=== PATIENT | male | born 1975 | race Caucasian/White ===

== ENCOUNTER 2017-08-20 21:36 | Emergency (ER) | payer OTHER ==
[~2017-08-20] VITALS: Ht 170.2 cm; Wt 60.3 kg
[~2017-08-20 21:36] MED LIST: CITA20TA9 PO; CLON-460 PO; ELVI1TAB6 PO; ESTR2TAB PO; GABA800T PO; MIRT45TA PO; ONDA8TAB62 SL; POTA20TA16 PO; PROM25TA9 PO; SPIR100T PO; SPRIN/30 INH; SRVDIN60 INH
[2017-08-20 21:39] VITALS: TEMP 36.7; Ht 170.2 cm; Wt 60.3 kg
--- NOTE | 2017-08-20 22:34 | DIAGNOSTIC IMAGING REPORT ---
R HAND MIN 3 VIEWS ROUTINE CLINICAL HISTORY: 41 years-old Male presenting with right hand injury, swelling. TECHNIQUE: Frontal, oblique, and lateral views of the right hand were obtained. COMPARISON: None. FINDINGS: Florien dorsal angulated acute fracture of the distal metaphysis of the fifth metacarpal. This may be mildly comminuted and impacted. This does not extend into the fifth metacarpophalangeal joint. No additional osseous abnormality. Mild overlying soft tissue swelling. IMPRESSION: Acute mildly angulated and impacted fracture of the distal metaphysis of the fifth metacarpal (boxer's fracture). Electronically signed by: Mina Pinzon M.D. 08/20/2017 10:32 PM Dictated Date/Time: 08/20/2017 10:30 PM
[2017-08-20] MEDS ORDERED: HYDR-5688 PO (22:43)
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
[2017-08-20] MEDS ORDERED: NORCO 5/325MG HOME PACK PO ONE (22:45)
[2017-08-20 22:55] VITALS: BP 109/64; PULSE 75; O2SAT 97
== END 2017-08-20 22:56 | disposition home or self-care (01) ==
LOC: C.EDB 21:37 → C.EDD 22:56
DX: S62.306A Unspecified fracture of fifth metacarpal bone, right hand, initial encounter for closed fracture (principal); Y04.0XXA Assault by unarmed brawl or fight, initial encounter; F17.200 Nicotine dependence, unspecified, uncomplicated

== ENCOUNTER 2018-01-17 11:38 | Emergency (ER) | payer OTHER ==
[~2018-01-17] VITALS: Ht 170.2 cm; Wt 63.0 kg
[~2018-01-17 11:38] MED LIST changes: +HYDR-5688 PO; +POTA-639 PO; -POTA20TA16 PO; -PROM25TA9 PO
[2018-01-17 11:41] VITALS: TEMP 36.9; Ht 170.2 cm; Wt 63.0 kg
[2018-01-17] MEDS ORDERED: RALT400T PO (12:22)
--- NOTE | 2018-01-17 12:55 | EMERGENCY ROOM VISIT NOTE ---
History Report prepared by Scooter: Larry Sosa Under the Supervision of: Dr. Jesika Blair D.O. First contact with patient: 12:43 Chief Complaint: SWELLING TO EXTREMITY Stated Complaint: LEG SWELLING History of Present Illness The patient is a 42 year old male who presents to the Emergency Room with complaints of worsening swelling to the bilateral lower extremities that began 3 days ago. The patient states that he is on his feet constantly when he works his shifts at [employer]. He has noticed lower extremity swelling intermittently in the past, but it has never been this severe. The swelling extends up to his knees and his knees are sore. The patient denies any history of blood clots and he does not wear compression stockings. He denies any chest pain or shortness of breath. The patient is HIV positive. Source of History: patient Onset: 3 days ago Position: leg (bilateral) Quality: other (swelling) Timing: worsening Associated Symptoms: + chest pain, + SOB Review of Systems See HPI for pertinent positives & negatives. A total of 10 systems reviewed and were otherwise negative. Past Medical & Surgical Medical Problems: (1) Anal fissure (2) Drug Abuse Nec-Unspec (3) Lumbago (4) Tobacco Use Disorder Surgical Problems: (1) History of colonoscopy Family History FHx: cancer Social History Smoking Status: Current Every Day Smoker Alcohol Use: occasionally Drug Use: none Marital Status: single Occupation Status: unemployed Current/Historical Medications Scheduled Clonidine HCl (Clonidine HCl), 0.3 MG PO BID Zmivhechtknc-Xbhepzvyws-Yezhha (Genvoya [phone] mg), 1 TAB PO DAILY Estradiol (Estradiol), 2 MG PO BID Gabapentin (Neurontin), 800 MG PO TID Mirtazapine (Remeron), 45 MG PO DAILY Raltegravir Potassium (Isentress), 1 TAB PO BID Salmeterol Xinafoate (Serevent Diskus), 1 PUFF INH BID Spironolactone (Aldactone), 100 MG PO BID Tiotropium [place] (Spiriva Handihaler), 1 CAP INH DAILY Scheduled PRN Ondansetron Odt (Zofran Odt), 8 MG SL Q8 PRN for Nausea Allergies Coded Allergies: No Known Allergies (Unverified , 01/17/18) Physical Exam Vital Signs Date Time Temp Pulse Resp B/P (MAP) Pulse Ox O2 Delivery O2 Flow Rate FiO2 01/17/18 15:24 70 16 160/87 100 01/17/18 14:15 68 18 114/63 Room Air 01/17/18 11:41 36.9 63 20 123/47 98 Room Air Physical Exam GENERAL: alert, well appearing, well nourished, no distress, non-toxic EYE EXAM: normal conjunctiva, PERRL and EOM's grossly intact OROPHARYNX: no exudate, no erythema, lips, buccal mucosa, and tongue normal and mucous membranes are moist NECK: supple, no nuchal rigidity, no adenopathy, non-tender LUNGS: Clear to auscultation. Normal chest wall mechanics HEART: no murmurs, S1 normal and S2 normal ABDOMEN: abdomen soft, non-tender, normo-active bowel sounds, no masses, no rebound or guarding. BACK: Back is symmetrical on inspection and there is no deformity, no midline tenderness, no CVA tenderness. SKIN: no rashes and no bruising UPPER EXTREMITIES: upper extremities are grossly normal. LOWER EXTREMITIES: 2+ pitting edema up to the knees bilaterally. NEURO EXAM: Normal sensorium, cranial nerves II-XII grossly intact, normal speech, no gross weakness of arms, no gross weakness of legs. Medical Decision & Procedures Laboratory Results 01/17/18 13:20 Red Blood Count 4.25, Mean Corpuscular Volume 98.8, Mean Corpuscular Hemoglobin 33.9, Mean Corpuscular Hemoglobin Concent 34.3, Mean Platelet Volume 9.8, Neutrophils (%) (Auto) 56.4, Lymphocytes (%) (Auto) 36.0, Monocytes (%) (Auto) 5.2, Eosinophils (%) (Auto) 1.8, Basophils (%) (Auto) 0.5, Neutrophils # (Auto) 4.45, Lymphocytes # (Auto) 2.84, Monocytes # (Auto) 0.41, Eosinophils # (Auto) 0.14, Basophils # (Auto) 0.04 01/17/18 13:20 Test 01/17/18 13:20 White Blood Count 7.89 K/uL (4.8-10.8) Red Blood Count 4.25 M/uL (4.7-6.1) Hemoglobin 14.4 g/dL (14.0-18.0) Hematocrit 42.0 % (42-52) Mean Corpuscular Volume 98.8 fL (80-100) Mean Corpuscular Hemoglobin 33.9 pg (25-34) Mean Corpuscular Hemoglobin Concent 34.3 g/dl (32-36) Platelet Count 220 K/uL (130-400) Mean Platelet Volume 9.8 fL (7.4-10.4) Neutrophils (%) (Auto) 56.4 % Lymphocytes (%) (Auto) 36.0 % Monocytes (%) (Auto) 5.2 % Eosinophils (%) (Auto) 1.8 % Basophils (%) (Auto) 0.5 % Neutrophils # (Auto) 4.45 K/uL (1.4-6.5) Lymphocytes # (Auto) 2.84 K/uL (1.2-3.4) Monocytes # (Auto) 0.41 K/uL (0.11-0.59) Eosinophils # (Auto) 0.14 K/uL (0-0.5) Basophils # (Auto) 0.04 K/uL (0-0.2) RDW Standard Deviation 52.0 fL (36.4-46.3) RDW Coefficient of Variation 14.5 % (11.5-14.5) Immature Granulocyte % (Auto) 0.1 % Immature Granulocyte # (Auto) 0.01 K/uL (0.00-0.02) Anion Gap 7.0 mmol/L (3-11) Est Creatinine Clear Calc Drug Dose 97.4 ml/min Estimated GFR () 122.8 Estimated GFR (Non- 106.0 BUN/Creatinine Ratio 10.3 (10-20) Calcium Level 8.9 mg/dl (8.5-10.1) Magnesium Level 2.0 mg/dl (1.8-2.4) Total Bilirubin 0.2 mg/dl (0.2-1) Aspartate Amino Transf (AST/SGOT) 10 U/L (15-37) Alanine Aminotransferase (ALT/SGPT) 14 U/L (12-78) Alkaline Phosphatase 86 U/L (45-117) Troponin I < 0.015 ng/ml (0-0.045) Pro-B-Type Natriuretic Peptide 83 pg/ml (0-450) Total Protein 6.9 gm/dl (6.4-8.2) Albumin 3.7 gm/dl (3.4-5.0) Globulin 3.2 gm/dl (2.5-4.0) Albumin/Globulin Ratio 1.1 (0.9-2) Laboratory results per my review. Medications Administered Medications (Trade) Dose Ordered Sig/María Route Start Time Stop Time Status Last Admin Dose Admin Acetaminophen (Tylenol Tab) 1,000 mg NOW STAT PO 01/17/18 14:04 01/17/18 14:05 DC 01/17/18 14:12 1,000 MG ED Course 1247: The patient was evaluated in room C11. A complete history and physical exam was performed. 1404: Ordered Tylenol 1000 mg PO. 1500: Patient updated on all results. Discussed elevation of legs when at rest , compression stockings when he is on his feet, close follow-up with his family doctor, symptoms to watch and return for, he verbalized understanding was agreeable with plan. Patient states he does follow-up with an HIV specialist in [address], is compliant with his medications now that he found a regimen that does not make him ill or give him adverse side effects, and states that his last CD4 count was "good". Patient is not on prophylactic antibiotics. Medical Decision Prior records reviewed and summarized above. Triage Nursing notes reviewed. Differential diagnosis: Etiologies such as DVT, musculoskeletal, infection, joint effusion, trauma, lymphedema, idiopathic, CHF, as well as others were entertained.. Patient well-appearing here despite complaints. No evidence of CHF, DVT, infection. I do not suspect other obstructive process leading to lower extremity edema. Likely this is lymphedema secondary to patient being on his feet at his job. Discussed with him this could also be a side effect of medications. Patient well-appearing here throughout, hemodynamically stable. Discussed with him elevation of the legs, use compression stockings, follow-up with his family doctor. Discussed symptoms to watch and return for, he verbalized understanding was agreeable with plan. I do not suspect occult infectious etiology, occult trauma, septic arthritis. Medication Reconcilliation Current Medication List: was personally reviewed by me Blood Pressure Screening Patient's blood pressure: Normal blood pressure Impression Primary Impression: Lower extremity edema Scribe Attestation The scribe's documentation has been prepared under my direction and personally reviewed by me in its entirety. I confirm that the note above accurately reflects all work, treatment, procedures, and medical decision making performed by me. Departure Information Dispostion Home / Self-Care Referrals Kvng Cooney M.D. (PCP) Patient Instructions My [facility] Additional Instructions Please call follow-up with your family doctor. Please consider using compression stockings when you know you need to be on your feet for a significant portion of the day. Please elevate your legs when at rest. If you have worsening swelling, overlying rash or redness, increasing joint pain, fevers or chills, chest pain or trouble breathing, palpitations, you have any other new concerns, please return the emergency room.
[2018-01-17 13:42] LABS: BASO % 0.5 %; BASO ABS # 0.04 K/uL (0-0.2); EOS % 1.8 %; EOS ABS # 0.14 K/uL (0-0.5); HEMOGLOBIN 14.4 g/dL (14.0-18.0); IG# 0.01 K/uL (0.00-0.02); LYMPH ABS # 2.84 K/uL (1.2-3.4); MEAN CELL VOLUME 98.8 fL (80-100); MEAN CORPUSCULAR HEMOGLOBIN 33.9 pg (25-34); MEAN CORPUSCULAR HGB CONC 34.3 g/dl (32-36); MEAN PLATELET VOLUME 9.8 fL (7.4-10.4); MONO % 5.2 %; MONO ABS # 0.41 K/uL (0.11-0.59); NEUT % 56.4 %; NEUT ABS # 4.45 K/uL (1.4-6.5); PLATELET COUNT 220 K/uL (130-400); RED CELL DISTRIBUTION WIDTH CV 14.5 % (11.5-14.5); WHITE BLOOD COUNT 7.89 K/uL (4.8-10.8)
[2018-01-17 14:02] LABS: ALBUMIN 3.7 gm/dl (3.4-5.0); BLOOD UREA NITROGEN 9 mg/dl (7-18); CALCIUM 8.9 mg/dl (8.5-10.1); CARBON DIOXIDE 29 mmol/L (21-32); CREATININE 0.88 mg/dl (0.60-1.40); GLUCOSE 75 mg/dl (70-99); POTASSIUM 3.6 mmol/L (3.5-5.1); SODIUM 140 mmol/L (136-145); TOTAL PROTEIN 6.9 gm/dl (6.4-8.2)
[2018-01-17 14:03] LABS: ALKALINE PHOSPHATASE 86 U/L (45-117); ALT/SGPT 14 U/L (12-78); AST/SGOT 10 U/L (15-37)
[2018-01-17] MEDS ORDERED: ACETAMINOPHEN 500 MG TAB PO STA (14:04)
--- NOTE | 2018-01-17 14:53 | DIAGNOSTIC IMAGING REPORT ---
ULTRASOUND VENOUS DOPPLER LWR EXT BILA CLINICAL HISTORY: Bilateral lower extremity edema COMPARISON STUDY: No previous studies for comparison. FINDINGS: Real-time and color flow Doppler imaging were performed. Flow was seen within the femoral, popliteal and calf veins with no intraluminal thrombus demonstrated. The saphenous vein is patent. IMPRESSION: No evidence of lower extremity DVT. Electronically signed by: Antonio Matamoros M.D. 01/17/2018 2:51 PM Dictated Date/Time: 01/17/2018 2:51 PM
[2018-01-17 15:24] VITALS: BP 160/87; PULSE 70; O2SAT 100
== END 2018-01-17 15:25 | disposition home or self-care (01) ==
LOC: EDBD 11:38 → C.EDC 11:39
DX: R60.0 Localized edema (principal); B20 Human immunodeficiency virus [HIV] disease; F17.200 Nicotine dependence, unspecified, uncomplicated; Z79.51 Long term (current) use of inhaled steroids; Z79.899 Other long term (current) drug therapy